=== PATIENT | female | born 1975 | race Asian ===

== ENCOUNTER 2016-08-28 22:09 | Inpatient (IN) | payer BC ==
[~2016-08-28] VITALS: Ht 165.1 cm; Wt 68.5 kg
[2016-08-28 23:22] LABS: BASOPHIL % 0.6 % (0-2); PLATELET COUNT 315 x10^3mcL (130-400); RED CELL DISTRIBUTION WIDTH 13.3 % (11.5-14.5)
[2016-08-28 23:37] LABS: CALCIUM 8.8 mg/dL (8.5-10.1); CARBON DIOXIDE 30.4 mmol/L (21-32); CHLORIDE SERUM 104 mmol/L (98-107); CREATININE SERUM 0.8 mg/dL (0.6-1.0); GFR1 > 60 mL/min; GLUCOSE SERUM 112 mg/dL (74-106); POTASSIUM SERUM 3.6 mmol/L (3.5-5.1); SODIUM SERUM 140 mmol/L (136-145)
[2016-08-28 23:42] LABS: ALKALINE PHOSPHATASE 78 U/L (46-116); ALT/SGPT 15 U/L (14-59); AST/SGOT 10 U/L (15-37); BILIRUBIN TOTAL 0.1 mg/dL (0.20-1.00); TOTAL PROTEIN, SERUM 7.2 g/dL (6.4-8.2)
[2016-08-28 23:43] LABS: ALBUMIN 3.2 g/dL (3.4-5.0)
[2016-08-29] VITALS (7 sets, daily range): BP systolic 82–99; BP diastolic 40–54
[2016-08-29 02:20] LABS: T3 TOTAL 0.85 ng/mL
[2016-08-29 02:24] LABS: FREE T4 1.21 ng/dL (0.76-1.46); FREE THYROXINE INDEX 3.1 ug/dL (1.4-4.5); T4(THYROXINE) 9.1 ug/dL (4.7-13.3)
[2016-08-29 02:28] LABS: CHOLESTEROL/HDL RATIO 4.5; MAGNESIUM 2.3 mg/dL (1.8-2.4); PHOSPHOROUS 3.9 mg/dL (2.5-4.9)
[2016-08-29 07:47] LABS: AMPHETAMINE QUAL UR NONE DETECTED (NEG <=1000)
[2016-08-29 07:49] LABS: microscopic required? YES; urine erythrocyte 3+ (NEGATIVE)
[2016-08-30 06:52] LABS: CALCIUM 8.2 mg/dL (8.5-10.1); CARBON DIOXIDE 25.6 mmol/L (21-32); CHLORIDE SERUM 106 mmol/L (98-107); CREATININE SERUM 0.7 mg/dL (0.6-1.0); GFR1 > 60 mL/min; GLUCOSE SERUM 99 mg/dL (74-106); MAGNESIUM 2.3 mg/dL (1.8-2.4); PHOSPHOROUS 3.9 mg/dL (2.5-4.9); PLATELET COUNT 277 x10^3mcL (130-400); POTASSIUM SERUM 3.7 mmol/L (3.5-5.1); RED CELL DISTRIBUTION WIDTH 12.5 % (11.5-14.5); SODIUM SERUM 141 mmol/L (136-145)
[2016-08-30 07:03] LABS: BASOPHIL % 3.5 % (0-2)
[2016-08-30 07:04] VITALS: BP 102/42
[2016-08-30] MEDS ORDERED: AZITHROMYCIN250 M1 PO (09:53)
[2016-08-30] MEDS ORDERED: LAC PO (09:56)
[2016-08-30] MEDS ORDERED: CYCLOBENZAPRINE5 MG PO (09:57)
[2016-08-30] MEDS ORDERED: TOR10 PO (09:58)
[2016-08-30 10:15] VITALS: BP 90/47
[2016-08-30 10:23] VITALS: BP 102/42
== END 2016-08-30 11:10 | disposition home or self-care (01) | DRG 193 ==
LOC: ED 22:09 → DU 08-29 01:00 → MU 08-29 01:00 → DU 08-29 01:59 → MU 08-30 05:56
PROVIDERS: Emergency Medicine; Family Medicine; ADMIT Family Medicine
DX: J18.9 Pneumonia, unspecified organism (principal); J96.00 Acute respiratory failure, unspecified whether with hypoxia or hypercapnia; E44.0 Moderate protein-calorie malnutrition; M94.0 Chondrocostal junction syndrome [Tietze]; M54.89 Other dorsalgia; G89.29 Other chronic pain; E78.5 Hyperlipidemia, unspecified; M54.2 Cervicalgia; Z53.29 Procedure and treatment not carried out because of patient's decision for other reasons; Z88.0 Allergy status to penicillin; Z87.891 Personal history of nicotine dependence; Z88.2 Allergy status to sulfonamides; Z80.3 Family history of malignant neoplasm of breast; Z68.25 Body mass index [BMI] 25.0-25.9, adult
CPT/HCPCS: 36600; 80307; 83880; 84439; 94150; J0456; J0696; J7030; J7050; J7613; J7620; J7644; Q0092